=== PATIENT | male | born 2000 | race Hispanic/Latino ===

== ENCOUNTER 2019-02-05 16:19 | Emergency (ER) | payer MEDICAID ==
[2019-02-05] MEDS ORDERED: NAPROXEN 500 MG TABLET ONE (17:12)
== END 2019-02-05 17:37 | disposition home or self-care (01) ==
LOC: EDH 16:19
DX: S83.411A Sprain of medial collateral ligament of right knee, initial encounter (principal); F90.9 Attention-deficit hyperactivity disorder, unspecified type; F91.3 Oppositional defiant disorder; Z87.891 Personal history of nicotine dependence; W18.39XA Other fall on same level, initial encounter; Y93.39 Activity, other involving climbing, rappelling and jumping off; Y92.89 Other specified places as the place of occurrence of the external cause; Y99.8 Other external cause status
CPT/HCPCS: 29505; 73562